=== PATIENT | male | born 1940 | race Caucasian/White ===

== ENCOUNTER → 2016-07-03 | Outpatient (CLI) | payer BC ==
--- NOTE | 2016-07-03 13:10 | DIAGNOSTIC IMAGING REPORT ---
CHEST 2 VIEWS ROUTINE CLINICAL HISTORY: Cough COMPARISON STUDY: No previous studies for comparison. FINDINGS: The heart is normal in size. There is aortic tortuosity. There is no focal pulmonary consolidation. There is no failure. There are no pleural effusions.[ IMPRESSION: No active disease in the chest. Electronically signed by: Scooter Nino M.D. 07/03/2016 1:09 PM Dictated Date/Time: 07/03/2016 1:09 PM
== END | disposition home or self-care (01) ==
LOC: C.RAD1850 12:55
PROVIDERS: ATTEND Internal Medicine
DX: R05 Cough (principal)

== ENCOUNTER 2018-05-11 21:39 | Inpatient (IN) ==
[2018-05-11] MEDS ORDERED: ACETAMINOPHEN 500 MG TAB PO STA (21:55)
[2018-05-11] MEDS ORDERED: ALBUTEROL 0.083% NEBU SOLN 3 ML VIAL NEB STA ×3 (21:55→22:50)
[2018-05-11] MEDS ORDERED: SODIUM CHLORIDE 0.9% 1000ML 1,000 ML IV SCH (22:00)
[2018-05-11 22:27] LABS: Basophils # (auto) 0.01 K/uL (0-0.2); Basophils % (auto) 0.1 %; Eosinophils # (auto) 0.02 K/uL (0-0.5); Eosinophils % (auto) 0.2 %; Hematocrit (blood only) 40.7 % (42-52); Hemoglobin 13.4 g/dL (14.0-18.0); Immature Granulocytes # (auto) 0.04 K/uL (0.00-0.02); Immature Granulocytes % (auto) 0.5 %; Lymphocytes % (auto) 7.1 %; Mean Corpuscular Hgb Conc 32.9 g/dL (32-36); Mean Corpuscular Volume 95.5 fL (80-100); Mean Platelet Volume 9.8 fL (7.4-10.4); Monocytes # (auto) 0.57 K/uL (0.11-0.59); Monocytes % (auto) 6.7 %; Neutrophils # (auto) 7.23 K/uL (1.4-6.5); Neutrophils % (auto) 85.4 %; Platelet Count 183 K/uL (130-400); RDW Coefficient of Variation 13.7 % (11.5-14.5); RDW Standard Deviation 47.2 fL (36.4-46.3); Red Blood Count 4.26 M/uL (4.7-6.1); White Blood Count 8.47 K/uL (4.8-10.8)
--- NOTE | 2018-05-11 22:39 | XRay Report ---
XR chest 1V portable CLINICAL HISTORY: SHORT OF BREATH COMPARISON STUDY: 07/03/2016 FINDINGS: The heart is mildly enlarged. There is no overt failure. There is no lobar consolidation. T here are no pleural effusions. There is subsegmental atelectatic changes at the left lung base.[ IMPRESSION: 1. Mild cardiomegaly 2. Left basilar subsegmental atelectasis Electronically signed by: Scooter Nino M.D. 05/11/2018 10:38 PM
[2018-05-11 22:43] LABS: Appearance Urine Clear (Clear); Bacteria Urine Automated Negative (Negative); Bilirubin Urine Negative (Negative); Color Urine Dark Yellow; Epithelial Cell Urine Auto 20-30 /lpf (0-5); Glucose Urine UA Negative (Negative); Ketones Urine Trace (Negative); Leukocyte Esterase Urine Negative (Negative); Nitrite Urine Negative (Negative); Protein Urine 1+ (Negative); Specific Gravity Urine 1.026 (1.000-1.030); Urobilinogen Urine Negative (Negative)
[2018-05-11 22:44] LABS: Albumin Level 3.5 gm/dl (3.4-5.0); BUN Creatinine Ratio 11.3 (10-20); Calcium 8.4 mg/dl (8.5-10.1); Creatinine Clr Calc Pharmacy 64.4 ml/min; Magnesium 2.1 mg/dl (1.8-2.4); Potassium 3.5 mmol/L (3.5-5.1)
[2018-05-11] MEDS ORDERED: DOXYCYCLINE HYCLATE 100 MG CAP PO STA (22:50)
[2018-05-11] MEDS ORDERED: ALBUTEROL HFA 8 GM INHALER INH ONE (22:50)
[2018-05-11 22:56] LABS: Albumin Globulin Ratio 0.9 (0.9-2); Bilirubin,Total 0.9 mg/dl (0.2-1); Globulin 3.9 gm/dl (2.5-4.0); Total Protein 7.4 gm/dl (6.4-8.2); Troponin I 0.049 ng/ml (0-0.045)
[2018-05-11] MEDS ORDERED: cefTRIAXone SODIUM 2,000 MG in DEXTROSE 5% 50 ML IV STA (22:56)
[2018-05-12 00:30] LABS: Influenza A virus by PCR Neg for Influ A (Neg); Influenza B virus by PCR Neg for Influ B (Neg)
--- NOTE | 2018-05-12 01:40 | History & Physical Report ---
Date of Service May 12, 2018 Assessment & Plan (1) Fever: Carroll Perera is a 77 y.o male with history of HTN and aortic aneurysm found to have recent tick bite admitted for further evaluation of fever, non- productive cough and fatigue. 1. Acute Febrile State - May be secondary to lyme disease vs ehrlichiosis vs anaplasmosis vs babesiosis vs viral illness -Most recent fever of 38.0 -WBC wnl, neutrophils mildly elevated -Blood culture pending -Influenza A/B negative -Anaplasmosis and Ehrlichiosis labs pending -Given Ceftriaxone 2gm for coverage of possible neuro involvement -Will continue Ceftriaxone 2gm q24hr and day team may consider discontinuing as appropriate -Continue Doxy 100mg PO BID x 10 day, received one dose in ED -Will continue IVF NS at rate of 125cc/hr -Tylenol as needed for fever 2. Acute Non-productive cough -May be secondary to viral illness vs tic borne disease - CXR negative for consolidation/effusion - Was given Albuterol neb x 3 in ED -Continue albuterol neb as needed for cough/wheeze -O2 at 3L to maintain sats > 92% -Tessalon pearls as needed 3. Syncope -Near syncopal state -Likely secondary to excessive non-productive cough -EKG: T-wave inversion in inferior leads, ST depression in anterior leads, no acute ST elevation -Troponin of 0.049, likely secondary to acute illness, will continue to trend -On Tele monitoring -Will continue IVF until taking PO well 4. HTN -Continue home dose of Amlodipine 5. History of Aortic Aneursym -Being monitored in outpt setting 6. ASCVD risk -Continue Aspirin 81mg PO daily FEN/GI IVF: NS at 125cc/hr Monitor and replace electrolytes Diet: Heart healthy Activity: up as tolerated GI PPX: Protonix DVT PPX: Heparin Code: FUll Code Dispo: Admitted to inpt for management of febrile illness. Plan to discharge to home when stable. Present on Admission?: Yes (2) Non-productive cough: Present on Admission?: Yes (3) Fatigue: Present on Admission?: Yes History of Present Illness Chief Complaint: coughing and could not catch my breath Primary Care Provider: Niraj Cleary MD Carroll Perera is a 77 y.o male with history of HTN and aortic aneurysm complaining of non-productive cough x 1 day with worsening frequency and pain on left side of chest with cough. States that cough started on 05/10/18 with associated congestion. He was able to sleep overnight but reports increasing fatigue on 04/17. He did not take any medication for the cough. Presented to the ED because he could not catch his breath while coughing and was beginning to feel short of breath. Additional information of tic bite found on right flank on . Reports itching at site which is how he identified the tic. The tic was removed on 05/04/18 by a friend. Mr. Perera believes that the tic was on his back for 2 days prior to removal. Was seen in clinic per Dr. Cleary and lymes serology obtained with negative result. He is tolerating fluids well. Febrile today with sweats. Denies n/v/diarrhea. Denies sick contacts. ED Course: Ceftriaxone 2gm given, Doxycycline 100mg given, Albuterol neb treatment x 3, IVF 1L bolus Allergies Allergy/AdvReac Type Severity Reaction Status Date / Time No Known Allergies Allergy Unknown Verified 05/11/18 22:50 Home Medications Home Medications Medication Instructions Recorded Confirmed Type Cinnamon 250 mg PO DAILY 05/11/18 05/11/18 History Red Rice Yeast 100 mg PO DAILY 05/11/18 05/11/18 History amlodipine 10 mg PO DAILY 05/11/18 05/11/18 History aspirin [Aspir-81] 81 mg PO DAILY 05/11/18 05/11/18 History ferrous sulfate [iron] 325 mg PO DAILY 05/11/18 05/11/18 History mv,Ca,aie-uqwm-LU-lycopene 1 tab PO DAILY 05/11/18 05/11/18 History [Centrum Men] doxycycline hyclate 100 mg PO BID #14 cap 05/12/18 Rx Past Med/Surg History Medical History No pertinent past medical history Social History Current Living Situation: Spouse Current Living Situation Comment: Lives in [place] with Other Information That Helps Us Care for You: No Feels Safe at Home: Yes Smoking Status: Never smoker Hx Alcohol Use: No Hx Substance Use: No Beliefs That Will Affect Care: None Preferred Language: Bulgarian Review of Systems Constitutional: + fever and + fatigue Eyes: no worsening vision Ear, Nose, Mouth, Throat: + nasal congestion Respiratory: + cough, + dyspnea on exertion, + pain with cough and + wheezing; no hemoptysis and no sputum production Cardiovascular: no chest pain, no palpitations, no lightheadedness and no edema Gastrointestinal: no heartburn, no cramping and no constipation Genitourinary (Male): no dysuria and no hematuria Musculoskeletal: no neck pain, no joint pain, no stiffness and no body aches Integumentary: + lesions Neurologic: no loss of sensation, no numbness and no paresthesia Hematologic / Lymphatic: no easy bleeding and no easy bruising Physical Exam 2 Vital Signs (Past 24 Hours): Last Vital Signs Temp 38.0 C H 05/11/18 23:28 Pulse 85 05/12/18 00:41 Resp 18 05/12/18 00:41 BP 125/55 L 05/12/18 00:41 Pulse Ox 92 05/12/18 00:41 Constitutional: well developed, + ill appearing, + obese and cooperative; no acute distress Eyes: PERRL, conjunctivae normal, anicteric sclerae ENMT: Nose: + turbinate abnormality (inflamed turbinates); no sinus tenderness moist mucus membranes Neck: neck supple, negative lymphadenopathy Respiratory: normal respiratory effort and + audible wheezes; no labored breathing, no nasal flaring and no pursed lip breathing Auscultation: no diminished lung sounds, no rales and no rhonchi Expiratory wheezes heard throughout all lung [place] with bases > upper lobes Cardiovascular: RRR, no murmur, no edema Heart Sounds: normal S1 and normal S2 Gastrointestinal (Abdomen): Percussion/Palpation: abdomen soft distended, bowel sounds present Musculoskeletal: no cyanosis or clubbing, extremities motor strength 5/5 moving all extremities well Skin: right flank with 1mm sized annular eschar, with mild erythema of surrounding tissue skin is warm and moist Neurologic: PERRL, EOMI, accommodation nl, no face palsy, no dysarthria CN' s II-XI intact bilaterally Lymphatic: negative cervical adenopathy Results & Data Laboratory Results Troponin 0.049 Diagnostic Findings CXR negative Code Status & VTE Plan Code Status DNR VTE Prophylaxis Plan VTE Prophylaxis will be ordered: Yes Supervising Physician Co-Signing Physician Notes Attending addendum: I have physically seen this patient, have supervised the medical residents activities, and agree with the H&P unless as otherwise noted. Assessment and Plan: Acute febrile illness-- Patient did have a tick removed at his PCPs office a few days ago. Would therefore warrant further workup for Lyme disease, ehrlichiosis, anaplasmosis, and empiric treatment with ceftriaxone IV and doxycycline p.o. NSS at 125 mL's per hour. Follow all culture results. Consult infectious disease. Elevated troponin/NSTEMI likely associated with supply demand mismatch-- The patient will be admitted to telemetry for serial cardiac enzymes, serial EKG's, cardiac rhythm monitoring and a 2-D echocardiogram with Dopplers. Continue amlodipine with hold parameters. Consult cardiology Remaining orders and notations as noted _ (1) Fever Encounter type: Fever type: unspecified Qualified Code(s): R50.9 - Fever, unspecified
[2018-05-12] MEDS ORDERED: ONDANSETRON INJ 2 MG/ML 2 ML VIAL IV PRN (01:44)
[2018-05-12] MEDS ORDERED: NITROGLYCERIN SL 0.4 MG/TAB TAB SL PRN (01:44)
[2018-05-12] MEDS ORDERED: ACETAMINOPHEN 325 MG TAB PO PRN (01:44)
[2018-05-12] MEDS ORDERED: SODIUM CHLORIDE 0.9% 1000ML 1,000 ML IV SCH (01:44)
[2018-05-12] MEDS ORDERED: ALUMINUM/MAGNESIUM SUSP 30 ML UDC PO PRN (01:44)
[2018-05-12] MEDS ORDERED: POLYETHYLENE (MIRALAX) 17 GM PACK PO PRN (01:44)
[2018-05-12] MEDS ORDERED: BENZONATATE 100 MG CAPSULE PO PRN (05:10)
[2018-05-12] MEDS ORDERED: ALBUTEROL 0.083% NEBU SOLN 3 ML VIAL NEB PRN (05:10)
[2018-05-12 06:49] LABS: INR 1.1 (0.9-1.1); Prothrombin Time 10.7 Seconds (9.0-12.0)
[2018-05-12 07:35] LABS: Basophils # (auto) 0.01 K/uL (0-0.2); Basophils % (auto) 0.2 %; Eosinophils # (auto) 0.01 K/uL (0-0.5); Eosinophils % (auto) 0.2 %; Hematocrit (blood only) 38.4 % (42-52); Hemoglobin 12.5 g/dL (14.0-18.0); Immature Granulocytes # (auto) 0.03 K/uL (0.00-0.02); Immature Granulocytes % (auto) 0.5 %; Lymphocytes # (auto) 0.93 K/uL (1.2-3.4); Lymphocytes % (auto) 15.3 %; Mean Corpuscular Volume 96.5 fL (80-100); Monocytes % (auto) 9.9 %; Neutrophils # (auto) 4.48 K/uL (1.4-6.5); Neutrophils % (auto) 73.9 %; Platelet Count 151 K/uL (130-400); RDW Coefficient of Variation 13.7 % (11.5-14.5); RDW Standard Deviation 48.7 fL (36.4-46.3); Red Blood Count 3.98 M/uL (4.7-6.1); White Blood Count 6.06 K/uL (4.8-10.8)
[2018-05-12 07:39] LABS: BUN Creatinine Ratio 12.5 (10-20); Creatinine Clr Calc Pharmacy 72.8 ml/min; Est GFR (African American) 85.8; Est GFR (Non-African American) 74.1; Potassium 3.6 mmol/L (3.5-5.1)
[2018-05-12 07:42] LABS: Mean Corpuscular Hgb Conc 32.6 g/dL (32-36)
[2018-05-12] MEDS: HEPARIN SOD 5,000 UNIT/0.5 ML VIAL SQ SCH ×2 (07:47→10:15)
[2018-05-12] MEDS ORDERED: AMLODIPINE BESYLATE 5 MG TAB PO SCH (09:00)
[2018-05-12] MEDS ORDERED: DOXYCYCLINE HYCLATE 100 MG CAP PO SCH (09:00)
[2018-05-12] MEDS ORDERED: ASPIRIN 81 MG ECTAB PO SCH (09:00)
[2018-05-12] MEDS ORDERED: PANTOprazole 40 MG TAB PO SCH (09:00)
--- NOTE | 2018-05-12 17:24 | Discharge Summary ---
Date of Service May 12, 2018 Admission HPI Per Admitting Provider Carroll Perera is a 77 y.o male with history of HTN and aortic aneurysm complaining of non-productive cough x 1 day with worsening frequency and pain on left side of chest with cough. States that cough started on 05/10/18 with associated congestion. He was able to sleep overnight but reports increasing fatigue on 04/17. He did not take any medication for the cough. Presented to the ED because he could not catch his breath while coughing and was beginning to feel short of breath. Additional information of tic bite found on right flank on . Reports itching at site which is how he identified the tic. The tic was removed on 05/04/18 by a friend. Mr. Perera believes that the tic was on his back for 2 days prior to removal. Was seen in clinic per Dr. Cleary and lymes serology obtained with negative result. He is tolerating fluids well. Febrile today with sweats. Denies n/v/diarrhea. Denies sick contacts. ED Course: Ceftriaxone 2gm given, Doxycycline 100mg given, Albuterol neb treatment x 3, IVF 1L bolus Principal Diagnosis Upper respiratory infection vs. tick-borne disease Discharge Exam Constitutional well developed, + ill appearing, + obese and cooperative; no acute distress Eyes PERRL, conjunctivae normal, anicteric sclerae ENMT Nose: + turbinate abnormality (inflamed turbinates); no sinus tenderness Respiratory normal respiratory effort and + audible wheezes; no labored breathing, no nasal flaring and no pursed lip breathing Auscultation: no diminished lung sounds, no rales and no rhonchi Cardiovascular RRR, no murmur, no edema Heart Sounds: normal S1 and normal S2 Gastrointestinal (Abdomen) Percussion/Palpation: abdomen soft Musculoskeletal no cyanosis or clubbing, extremities motor strength 5/5 Neurologic PERRL, EOMI, accommodation nl, no face palsy, no dysarthria CN's II-XI intact bilaterally Discharge Data Allergies Allergy/AdvReac Type Severity Reaction Status Date / Time No Known Allergies Allergy Unknown Verified 05/11/18 22:50 Consultations 05/11/18 23:02 ED Decision to Admit Stat Hospital Course (1) Fever: Carrlol Perera is a 77 y.o male with history of HTN and aortic aneurysm found to have recent tick bite admitted for further evaluation of fever, non- productive cough and fatigue. 1. Acute Febrile State - May be secondary to lyme disease vs ehrlichiosis vs anaplasmosis vs babesiosis vs viral illness -Influenza A/B negative -Anaplasmosis and Ehrlichiosis labs pending -Given Ceftriaxone 2gm for coverage of possible neuro involvement Day after admission, he was afebrile, felt fine, and requested discharge. He will take doxycycline for 1 week for any bronchitis, and follow up with his PCP to determine if he has any tick-borne disease that would require further treatment. (2) Non-productive cough: (3) Fatigue: Total Time Total Time Spent Total Time Spent (In Minutes): 35 Total Time Includes: Examination of the Patient, Discharge Planning and Medication Reconciliation Discharge Plan Discharge Items Patient Disposition: Home - Self-Care Reason For Visit: FEVER,COUGH,NEAR SYNCOPE Discharge Diagnosis: Viral illness or possible tick-borne disease Discharge Goals: Decrease discomfort Activity: Resume your previous activity Non-emergency contact: Primary Care Provider Call non-emergency contact if: your symptoms worsen and your temperature is above 101.5 Follow-up/Referrals: Francois Cleary MD [Primary Care Provider] - (Please see Dr. Cleary in a week to make sure you are feeling better.) Diet: Regular Addtl Provider Instructions: Mr. Perera, You were admitted to the hospital for fever, cough, and some feelings of lightheadedness. We did some testing, and think you probably have/had a viral infection causing bronchitis. We gave you some antibiotics, and by the day of discharge, you were feeling better. You still have some cough, which may last for another week or so. You also had a tick bite recently. You said that you think the tick was on for less than 24 hours and that it was not engorged. Both of these things make it less likely that you got any tick-borne disease like Lyme's. However, you said you have a course of doxycycline at home, and I think you should take this for the next week to be sure and to also treat the mostly causes of bronchitis. Finally, we tested a lab called the troponin which was mildly elevated. Your EKG showed some changes, but you did not have chest pain while you were here. It may be worthwhile to follow up with your PCP about any additional heart testing. Please see your PCP in the next week or so to be sure you're feeling better and to follow up on some of the labs that we pricila in the hospital that are not back yet. Please return to the hospital with any chest pain, fever, cough, chills, or other concerning symptoms. Prescriptions: New doxycycline hyclate 100 mg Capsule 100 mg PO BID Qty: 14 RF: 0 Continue amlodipine 10 mg Tablet 10 mg PO DAILY RF: 0 Cinnamon 250 mg PO DAILY RF: 0 Red Rice Yeast 100 mg PO DAILY RF: 0 mv,Ca,zaa-utqf-FH-lycopene [Centrum Men] 8 mg iron- 200 mcg-600 mcg Tablet 1 tab PO DAILY RF: 0 ferrous sulfate [iron] 325 mg (65 mg iron) Tablet 325 mg PO DAILY RF: 0 aspirin [Aspir-81] 81 mg Tablet,Delayed Release (Dr/Ec) 81 mg PO DAILY RF: 0 Visit Report Forms: [facility] Stand-Alone Forms: [facility] Discharge Orders: Discharge Order (Routine); Ordered 05/12/18 Ordered By: Apolinar Kincaid Admission Data Admit Date/Time: 05/12/18 01:21 Attending Provider: Apolinar Kincaid Admit Provider: Rick Miller Primary Care Provider: Francois Cleary Other Providers: Apolinar Kincaid Service: Telemetry Other Interventions: Discharge Summary Assessment (RN) Last Done: 05/12/18 11:11 DC Date/Time DO NOT enter until pt leaves facility: 05/12/18 12:40
--- NOTE | 2018-05-12 19:24 | Emergency Department Note ---
Entered by Beto Ortega acting as a scribe for Jeremi Aguilar MD History of Present Illness General Chief complaint: Syncope (Near Syncope) Stated complaint: CHEST CONGESTION, COUGH, PASSED OUT ONCE Time Seen by Provider: 05/11/18 21:50 Source: patient History of Present Illness Provider complaint: Respiratory issues Onset (ago): minute(s) (Just prior to arrival) Location: chest Pain Consistency: + intermittent Maximum Pain Intensity: 6 Relieved By: + none Exacerbated By: + none Associated symptoms: + cough and + fever/chills; no shortness of breath The patient is a 77 year old male who presents to the Emergency Room with complaints of intermittent respiratory issues that started today just prior to arrival. He states he had a coughing fit that almost made him syncopize and he does have a fever, however he currently denies any shortness of breath. The patient does not have any history of respiratory issues and does not wear oxygen at baseline. Prior to arrival he did take 2 Azithromycin that his gave him from her [employer]. He also mentioned that he had a tick bite last week but he had it removed and was tested for Lymes Disease. Home Medications Home Medications Medication Instructions Recorded Confirmed Type Cinnamon 250 mg PO DAILY 05/11/18 05/11/18 History Red Rice Yeast 100 mg PO DAILY 05/11/18 05/11/18 History amlodipine 10 mg PO DAILY 05/11/18 05/11/18 History aspirin [Aspir-81] 81 mg PO DAILY 05/11/18 05/11/18 History ferrous sulfate [iron] 325 mg PO DAILY 05/11/18 05/11/18 History mv,Ca,ihn-qxmu-VH-lycopene 1 tab PO DAILY 05/11/18 05/11/18 History [Centrum Men] doxycycline hyclate 100 mg PO BID #14 cap 05/12/18 Rx Allergies Allergy/AdvReac Type Severity Reaction Status Date / Time No Known Allergies Allergy Unknown Verified 05/11/18 22:50 Past Med/Surg History Medical History No pertinent past medical history Social History Current Living Situation: Spouse Current Living Situation Comment: Lives in [place] with Other Information That Helps Us Care for You: No Feels Safe at Home: Yes Smoking Status: Never smoker Hx Alcohol Use: No Hx Substance Use: No Beliefs That Will Affect Care: None Preferred Language: Yi Review of Systems See HPI for pertinent positives & negatives. and A total of 10 systems reviewed and were otherwise negative Physical Exam Vital Signs Vital Signs - 24 hr 05/11/18 21:44 05/11/18 22:14 05/11/18 22:35 Temperature 38.8 C H Temperature Source Oral Sepsis Recent Fever Within 48 Hours Yes Sepsis New/Unexplained Change in Mental Status No Sepsis Action Taken by Nursing No Action Required Pulse Rate 105 H Pulse Rate [Right] 100 H Pulse Rhythm Regular Pulse Rhythm [Right] Regular Pulse Strength Normal Pulse Strength [Right] Normal Respiratory Rate 20 20 Respiratory Effort / Characteristics Non-Labored Spontaneous Non-Labored Spontaneous Respiratory Depth Normal Normal Respiratory Pattern Regular Blood Pressure 144/81 H Blood Pressure [Left Arm] Blood Pressure [Right Arm] 135/76 Blood Pressure Mean 102 Blood Pressure Mean [Left Arm] Blood Pressure Mean [Right Arm] 95 Blood Pressure Position Sitting Blood Pressure Position [Left Arm] Blood Pressure Position [Right Arm] Sitting Pulse Oximetry 87 L 97 98 Oxygen Delivery Method Room Air Room Air Room Air Oxygen Flow Rate 05/11/18 23:28 05/12/18 00:41 05/12/18 01:32 Temperature 38.0 C H Temperature Source Oral Sepsis Recent Fever Within 48 Hours Sepsis New/Unexplained Change in Mental Status Sepsis Action Taken by Nursing Pulse Rate Pulse Rate [Right] 85 80 Pulse Rhythm Pulse Rhythm [Right] Regular Regular Pulse Strength Pulse Strength [Right] Normal Respiratory Rate 18 20 Respiratory Effort / Characteristics Non-Labored Spontaneous Non-Labored Spontaneous Respiratory Depth Normal Normal Respiratory Pattern Blood Pressure Blood Pressure [Left Arm] Blood Pressure [Right Arm] 125/55 L 122/56 L Blood Pressure Mean Blood Pressure Mean [Left Arm] Blood Pressure Mean [Right Arm] 78 78 Blood Pressure Position Blood Pressure Position [Left Arm] Blood Pressure Position [Right Arm] Lying Pulse Oximetry 92 93 Oxygen Delivery Method Nasal Cannula Nasal Cannula Oxygen Flow Rate 3 2 05/12/18 01:44 05/12/18 01:45 05/12/18 03:38 Temperature 36.8 C 36.8 C Temperature Source Axillary Oral Sepsis Recent Fever Within 48 Hours Sepsis New/Unexplained Change in Mental Status Sepsis Action Taken by Nursing Pulse Rate Pulse Rate [Right] 82 74 Pulse Rhythm Pulse Rhythm [Right] Regular Pulse Strength Pulse Strength [Right] Normal Respiratory Rate 18 23 Respiratory Effort / Characteristics SOB on Exertion Non-Labored Respiratory Depth Normal Normal Respiratory Pattern Regular Regular Blood Pressure Blood Pressure [Left Arm] 127/67 Blood Pressure [Right Arm] 112/61 Blood Pressure Mean Blood Pressure Mean [Left Arm] 87 Blood Pressure Mean [Right Arm] 78 Blood Pressure Position Blood Pressure Position [Left Arm] Lying Blood Pressure Position [Right Arm] Lying Pulse Oximetry 91 93 Oxygen Delivery Method Nasal Cannula Room Air Nasal Cannula Oxygen Flow Rate 2 2 05/12/18 07:47 05/12/18 08:00 05/12/18 10:45 Temperature 37.5 C 36.9 C Temperature Source Oral Oral Sepsis Recent Fever Within 48 Hours Sepsis New/Unexplained Change in Mental Status Sepsis Action Taken by Nursing Pulse Rate Pulse Rate [Right] 79 80 Pulse Rhythm Pulse Rhythm [Right] Pulse Strength Pulse Strength [Right] Respiratory Rate 20 19 Respiratory Effort / Characteristics SOB on Exertion Respiratory Depth Respiratory Pattern Blood Pressure Blood Pressure [Left Arm] Blood Pressure [Right Arm] 158/59 H 154/81 H Blood Pressure Mean Blood Pressure Mean [Left Arm] Blood Pressure Mean [Right Arm] 92 105 Blood Pressure Position Blood Pressure Position [Left Arm] Blood Pressure Position [Right Arm] Sitting Sitting Pulse Oximetry 92 91 Oxygen Delivery Method Nasal Cannula Nasal Cannula Room Air Oxygen Flow Rate 3 3 05/12/18 11:11 Temperature 36.9 C Temperature Source Sepsis Recent Fever Within 48 Hours Sepsis New/Unexplained Change in Mental Status Sepsis Action Taken by Nursing Pulse Rate Pulse Rate [Right] 80 Pulse Rhythm Pulse Rhythm [Right] Pulse Strength Pulse Strength [Right] Respiratory Rate 19 Respiratory Effort / Characteristics Respiratory Depth Respiratory Pattern Blood Pressure Blood Pressure [Left Arm] 127/67 Blood Pressure [Right Arm] 154/81 H Blood Pressure Mean Blood Pressure Mean [Left Arm] Blood Pressure Mean [Right Arm] Blood Pressure Position Blood Pressure Position [Left Arm] Blood Pressure Position [Right Arm] Pulse Oximetry 91 Oxygen Delivery Method Oxygen Flow Rate GENERAL: Awake, alert, well-appearing, in no distress HENT: Normocephalic, atraumatic. Oropharynx unremarkable. EYES: Normal conjunctiva. Sclera non-icteric. NECK: Supple. No nuchal rigidity. FROM. No masses. RESPIRATORY: Bilateral wheezing. No rales. Normal respiratory effort. CARDIAC: Normal rate. Normal rhythm. No murmurs. No rubs. Extremities warm and well perfused. Pulses equal. No JVD. GI: Soft, non-distended. No tenderness to palpation. No rebound or guarding. No masses. RECTAL: Deferred. MUSCULOSKELETAL: Atraumatic. Chest examination reveals no tenderness. The back is symmetrical on inspection without obvious abnormality. There is no CVA tenderness to palpation. No joint edema. LOWER EXTREMITIES: Calves are equal size bilaterally and non-tender. No edema. No discoloration. NEURO: Normal sensorium. No sensory or motor deficits noted. Course 2151: Past medical records reviewed. The patient was evaluated in room C12, and a complete history and physical examination were performed. 8: I reevaluated the patient and updated him on his labs. We also discussed the treatment plan. 2310: I spoke to [facility] Ty [facility] Hospital[facility] about the patient's case and he is going to accept him for further evaluation. Consultations Consultation #1: [facility] and [facility] is going to accept him for further evaluation. Time: 23:10 Administered Medications Discontinued Medications Acetaminophen (Tylenol) 1,000 mg PO NOW STA Stop: 05/11/18 21:56 Last Admin: 05/11/18 22:06 Dose: 1,000 mg Albuterol (Ventolin 0.083% 2.5mg/3ml) 2.5 mg NEB NOW STA Stop: 05/11/18 21:56 Last Admin: 05/11/18 22:06 Dose: 2.5 mg Albuterol (Ventolin 0.083% 2.5mg/3ml) 2.5 mg NEB NOW STA Stop: 05/11/18 22:27 Last Admin: 05/11/18 22:34 Dose: 2.5 mg Albuterol (Ventolin 0.083% 2.5mg/3ml) 2.5 mg NEB NOW STA Stop: 05/11/18 22:51 Last Admin: 05/11/18 23:04 Dose: 2.5 mg Albuterol (Ventolin Hfa) 2 puffs INH NOW ONE Stop: 05/11/18 22:51 Last Admin: 05/11/18 23:03 Dose: Not Given Amlodipine Besylate (Norvasc) 10 mg PO DAILY DENNIS Stop: 06/11/18 08:59 Last Admin: 05/12/18 07:47 Dose: 10 mg Aspirin (Ecotrin Ectab) 81 mg PO DAILY DENNIS Stop: 06/11/18 08:59 Last Admin: 05/12/18 07:48 Dose: 81 mg Doxycycline Hyclate (Vibramycin) 100 mg PO NOW STA Stop: 05/11/18 22:51 Last Admin: 05/11/18 23:04 Dose: 100 mg Doxycycline Hyclate (Vibramycin) 100 mg PO BID DENNIS Stop: 05/26/18 08:59 Last Admin: 05/12/18 07:48 Dose: 100 mg Heparin Sodium (Porcine) (Heparin Sodium (Porcine)) 5,000 units SQ Q8H DENNIS Stop: 06/11/18 07:59 Last Admin: 05/12/18 10:15 Dose: Not Given Admin: 05/12/18 07:47 Dose: Not Given Sodium Chloride (Nss 1000ml) 1,000 mls @ 999 mls/hr IV .Q1H1M DENNIS Stop: 05/11/18 23:00 Last Infusion: 05/11/18 23:08 Dose: 0 mls/hr Admin: 05/11/18 22:06 Dose: 999 mls/hr Ceftriaxone Sodium 2,000 mg/ (Dextrose) 70 mls @ 100 mls/hr IV NOW STA; Protocol Stop: 05/11/18 23:37 Last Infusion: 05/11/18 23:48 Dose: 0 mls/hr Admin: 05/11/18 23:06 Dose: 100 mls/hr Sodium Chloride (Nss 1000ml) 1,000 mls @ 125 mls/hr IV .Q8H DENNIS Stop: 06/11/18 01:43 Last Infusion: 05/12/18 08:43 Dose: 0 mls/hr Admin: 05/12/18 02:08 Dose: 125 mls/hr Pantoprazole Sodium (Protonix) 40 mg PO QAM DENNIS Stop: 06/11/18 08:59 Last Admin: 05/12/18 07:49 Dose: Not Given Medical Decision Making Differential Diagnosis Differential diagnoses includes but is not limited to pneumonia, bronchitis, COPD/Asthma exacerbation, pneumothorax, pulmonary embolism, congestive heart failure, acute coronary syndrome Medical Records Attestation: I reviewed the patient's medical records. Home Medications Current Medication List: was personally reviewed by me Laboratory Data Attestation: I reviewed the patient's lab results. Result diagrams: 05/12/18 06:10 05/12/18 06:10 Lab Results 05/11/18 05/11/18 05/11/18 Range/Units 22:10 22:10 22:13 WBC 8.47 (4.8-10.8) K/uL RBC 4.26 L (4.7-6.1) M/uL Hgb 13.4 L (14.0-18.0) g/dL Hct 40.7 L (42-52) % MCV 95.5 (80-100) fL MCH 31.5 (25-34) pg MCHC 32.9 (32-36) g/dL RDW Std Deviation 47.2 H (36.4-46.3) fL RDW Coeff of Heidy 13.7 (11.5-14.5) % Plt Count 183 (130-400) K/uL MPV 9.8 (7.4-10.4) fL Immature Gran % (Auto) 0.5 % Neut % (Auto) 85.4 % Lymph % (Auto) 7.1 % [place] % (Auto) 6.7 % Eos % (Auto) 0.2 % Baso % (Auto) 0.1 % Immature Gran # (Auto) 0.04 H (0.00-0.02) K/uL Neut # (Auto) 7.23 H (1.4-6.5) K/uL Lymph # (Auto) 0.60 L (1.2-3.4) K/uL [place] # (Auto) 0.57 (0.11-0.59) K/uL Eos # (Auto) 0.02 (0-0.5) K/uL Baso # (Auto) 0.01 (0-0.2) K/uL Absolute Nucleated RBC 0.00 (0-0) K/uL Nucleated RBC % (auto) 0.0 % PT (9.0-12.0) Seconds INR (0.9-1.1) Sodium 139 (136-145) mmol/L Potassium 3.5 (3.5-5.1) mmol/L Chloride 106 (98-107) mmol/L Carbon Dioxide 25 (21-32) mmol/L Anion Gap 8.0 (3-11) BUN 13 (7-18) mg/dl Creatinine 1.12 (0.6-1.4) mg/dl Est Cr Clr Drug Dosing 64.4 ml/min Est GFR ( Amer) 73.0 Est GFR (Non-Af Amer) 63.0 BUN/Creatinine Ratio 11.3 (10-20) Glucose 116 H (70-99) mg/dl POC Lactic Acid Erick (0.90-1.70) mmol/L Calcium 8.4 L (8.5-10.1) mg/dl Magnesium 2.1 (1.8-2.4) mg/dl Total Bilirubin 0.9 (0.2-1) mg/dl AST 35 (15-37) U/L ALT 38 (12-78) U/L Alkaline Phosphatase 52 (45-117) U/L Troponin I 0.049 H* (0-0.045) ng/ml Total Protein 7.4 (6.4-8.2) gm/dl Albumin 3.5 (3.4-5.0) gm/dl Globulin 3.9 (2.5-4.0) gm/dl Albumin/Globulin Ratio 0.9 (0.9-2) TSH 0.805 (0.300-4.500) uIu/ml Urine Color Urine Appearance (Clear) Urine pH (4.5-7.5) Ur Specific [place] (1.000-1.030) Urine Protein (Negative) Urine Glucose (UA) (Negative) Urine Ketones (Negative) Urine Blood (Negative) Urine Nitrite (Negative) Urine Bilirubin (Negative) Urine Urobilinogen (Negative) Ur Leukocyte Esterase (Negative) Urine WBC (Auto) (0-5) /hpf Urine RBC (Auto) (0-4) /hpf U Hyaline Cast (Auto) (0-5) /lpf U Epithel Cells (Auto) (0-5) /lpf Urine Bacteria (Auto) (Negative) Influenza Type A Ag Neg for Influ A (Neg) Influenza Type A (PCR) (Neg) Influenza Type B Ag Neg for Influ B (Neg) Influenza Type B (PCR) (Neg) 05/11/18 05/11/18 05/11/18 Range/Units 22:13 22:20 22:35 WBC (4.8-10.8) K/uL RBC (4.7-6.1) M/uL Hgb (14.0-18.0) g/dL Hct (42-52) % MCV (80-100) fL MCH (25-34) pg MCHC (32-36) g/dL RDW Std Deviation (36.4-46.3) fL RDW Coeff of Heidy (11.5-14.5) % Plt Count (130-400) K/uL MPV (7.4-10.4) fL Immature Gran % (Auto) % Neut % (Auto) % Lymph % (Auto) % [place] % (Auto) % Eos % (Auto) % Baso % (Auto) % Immature Gran # (Auto) (0.00-0.02) K/uL Neut # (Auto) (1.4-6.5) K/uL Lymph # (Auto) (1.2-3.4) K/uL [place] # (Auto) (0.11-0.59) K/uL Eos # (Auto) (0-0.5) K/uL Baso # (Auto) (0-0.2) K/uL Absolute Nucleated RBC (0-0) K/uL Nucleated RBC % (auto) % PT (9.0-12.0) Seconds INR (0.9-1.1) Sodium (136-145) mmol/L Potassium (3.5-5.1) mmol/L Chloride (98-107) mmol/L Carbon Dioxide (21-32) mmol/L Anion Gap (3-11) BUN (7-18) mg/dl Creatinine (0.6-1.4) mg/dl Est Cr Clr Drug Dosing ml/min Est GFR ( Amer) Est GFR (Non-Af Amer) BUN/Creatinine Ratio (10-20) Glucose (70-99) mg/dl POC Lactic Acid Erick 1.57 (0.90-1.70) mmol/L Calcium (8.5-10.1) mg/dl Magnesium (1.8-2.4) mg/dl Total Bilirubin (0.2-1) mg/dl AST (15-37) U/L ALT (12-78) U/L Alkaline Phosphatase (45-117) U/L Troponin I (0-0.045) ng/ml Total Protein (6.4-8.2) gm/dl Albumin (3.4-5.0) gm/dl Globulin (2.5-4.0) gm/dl Albumin/Globulin Ratio (0.9-2) TSH (0.300-4.500) uIu/ml Urine Color Dark Yellow Urine Appearance Clear (Clear) Urine pH 5.0 (4.5-7.5) Ur Specific [place] 1.026 (1.000-1.030) Urine Protein 1+ H (Negative) Urine Glucose (UA) Negative (Negative) Urine Ketones Trace H (Negative) Urine Blood Negative (Negative) Urine Nitrite Negative (Negative) Urine Bilirubin Negative (Negative) Urine Urobilinogen Negative (Negative) Ur Leukocyte Esterase Negative (Negative) Urine WBC (Auto) 1-5 (0-5) /hpf Urine RBC (Auto) 0-4 (0-4) /hpf U Hyaline Cast (Auto) 1-5 (0-5) /lpf U Epithel Cells (Auto) 20-30 H (0-5) /lpf Urine Bacteria (Auto) Negative (Negative) Influenza Type A Ag (Neg) Influenza Type A (PCR) Neg for Influ A (Neg) Influenza Type B Ag (Neg) Influenza Type B (PCR) Neg for Influ B (Neg) 05/12/18 05/12/18 05/12/18 Range/Units 06:10 06:10 06:10 WBC 6.06 (4.8-10.8) K/uL RBC 3.98 L (4.7-6.1) M/uL Hgb 12.5 L (14.0-18.0) g/dL Hct 38.4 L (42-52) % MCV 96.5 (80-100) fL MCH 31.4 (25-34) pg MCHC 32.6 (32-36) g/dL RDW Std Deviation 48.7 H (36.4-46.3) fL RDW Coeff of Heidy 13.7 (11.5-14.5) % Plt Count 151 (130-400) K/uL MPV 10.0 (7.4-10.4) fL Immature Gran % (Auto) 0.5 % Neut % (Auto) 73.9 % Lymph % (Auto) 15.3 % [place] % (Auto) 9.9 % Eos % (Auto) 0.2 % Baso % (Auto) 0.2 % Immature Gran # (Auto) 0.03 H (0.00-0.02) K/uL Neut # (Auto) 4.48 (1.4-6.5) K/uL Lymph # (Auto) 0.93 L (1.2-3.4) K/uL [place] # (Auto) 0.60 H (0.11-0.59) K/uL Eos # (Auto) 0.01 (0-0.5) K/uL Baso # (Auto) 0.01 (0-0.2) K/uL Absolute Nucleated RBC (0-0) K/uL Nucleated RBC % (auto) % PT 10.7 (9.0-12.0) Seconds INR 1.1 (0.9-1.1) Sodium (136-145) mmol/L Potassium (3.5-5.1) mmol/L Chloride (98-107) mmol/L Carbon Dioxide (21-32) mmol/L Anion Gap (3-11) BUN (7-18) mg/dl Creatinine (0.6-1.4) mg/dl Est Cr Clr Drug Dosing ml/min Est GFR ( Amer) Est GFR (Non-Af Amer) BUN/Creatinine Ratio (10-20) Glucose (70-99) mg/dl POC Lactic Acid Erick (0.90-1.70) mmol/L Calcium (8.5-10.1) mg/dl Magnesium (1.8-2.4) mg/dl Total Bilirubin (0.2-1) mg/dl AST (15-37) U/L ALT (12-78) U/L Alkaline Phosphatase (45-117) U/L Troponin I 0.200 H* (0-0.045) ng/ml Total Protein (6.4-8.2) gm/dl Albumin (3.4-5.0) gm/dl Globulin (2.5-4.0) gm/dl Albumin/Globulin Ratio (0.9-2) TSH (0.300-4.500) uIu/ml Urine Color Urine Appearance (Clear) Urine pH (4.5-7.5) Ur Specific [place] (1.000-1.030) Urine Protein (Negative) Urine Glucose (UA) (Negative) Urine Ketones (Negative) Urine Blood (Negative) Urine Nitrite (Negative) Urine Bilirubin (Negative) Urine Urobilinogen (Negative) Ur Leukocyte Esterase (Negative) Urine WBC (Auto) (0-5) /hpf Urine RBC (Auto) (0-4) /hpf U Hyaline Cast (Auto) (0-5) /lpf U Epithel Cells (Auto) (0-5) /lpf Urine Bacteria (Auto) (Negative) Influenza Type A Ag (Neg) Influenza Type A (PCR) (Neg) Influenza Type B Ag (Neg) Influenza Type B (PCR) (Neg) 05/12/18 Range/Units 06:10 WBC (4.8-10.8) K/uL RBC (4.7-6.1) M/uL Hgb (14.0-18.0) g/dL Hct (42-52) % MCV (80-100) fL MCH (25-34) pg MCHC (32-36) g/dL RDW Std Deviation (36.4-46.3) fL RDW Coeff of Heidy (11.5-14.5) % Plt Count (130-400) K/uL MPV (7.4-10.4) fL Immature Gran % (Auto) % Neut % (Auto) % Lymph % (Auto) % [place] % (Auto) % Eos % (Auto) % Baso % (Auto) % Immature Gran # (Auto) (0.00-0.02) K/uL Neut # (Auto) (1.4-6.5) K/uL Lymph # (Auto) (1.2-3.4) K/uL [place] # (Auto) (0.11-0.59) K/uL Eos # (Auto) (0-0.5) K/uL Baso # (Auto) (0-0.2) K/uL Absolute Nucleated RBC (0-0) K/uL Nucleated RBC % (auto) % PT (9.0-12.0) Seconds INR (0.9-1.1) Sodium 141 (136-145) mmol/L Potassium 3.6 (3.5-5.1) mmol/L Chloride 107 (98-107) mmol/L Carbon Dioxide 25 (21-32) mmol/L Anion Gap 9.0 (3-11) BUN 12 (7-18) mg/dl Creatinine 0.98 (0.6-1.4) mg/dl Est Cr Clr Drug Dosing 72.8 ml/min Est GFR ( Amer) 85.8 Est GFR (Non-Af Amer) 74.1 BUN/Creatinine Ratio 12.5 (10-20) Glucose 114 H (70-99) mg/dl POC Lactic Acid Erick (0.90-1.70) mmol/L Calcium 8.0 L (8.5-10.1) mg/dl Magnesium (1.8-2.4) mg/dl Total Bilirubin (0.2-1) mg/dl AST (15-37) U/L ALT (12-78) U/L Alkaline Phosphatase (45-117) U/L Troponin I (0-0.045) ng/ml Total Protein (6.4-8.2) gm/dl Albumin (3.4-5.0) gm/dl Globulin (2.5-4.0) gm/dl Albumin/Globulin Ratio (0.9-2) TSH (0.300-4.500) uIu/ml Urine Color Urine Appearance (Clear) Urine pH (4.5-7.5) Ur Specific [place] (1.000-1.030) Urine Protein (Negative) Urine Glucose (UA) (Negative) Urine Ketones (Negative) Urine Blood (Negative) Urine Nitrite (Negative) Urine Bilirubin (Negative) Urine Urobilinogen (Negative) Ur Leukocyte Esterase (Negative) Urine WBC (Auto) (0-5) /hpf Urine RBC (Auto) (0-4) /hpf U Hyaline Cast (Auto) (0-5) /lpf U Epithel Cells (Auto) (0-5) /lpf Urine Bacteria (Auto) (Negative) Influenza Type A Ag (Neg) Influenza Type A (PCR) (Neg) Influenza Type B Ag (Neg) Influenza Type B (PCR) (Neg) Imaging Data Radiologist's Impression: Radiology results as stated below per my review and the radiologist's interpretation: XR chest 1V portable CLINICAL HISTORY: SHORT OF BREATH COMPARISON STUDY: 07/03/2016 FINDINGS: The heart is mildly enlarged. There is no overt failure. There is no lobar consolidation. There are no pleural effusions. There is subsegmental atelectatic changes at the left lung base.[ IMPRESSION: 1. Mild cardiomegaly 2. Left basilar subsegmental atelectasis Electronically signed by: Scooter Nino M.D. 05/11/2018 10:38 PM ECG Data Attestation: I personally reviewed and interpreted this ECG as follows: Indication: SOB/dyspnea Rate (beats per minute): 98 Rhythm: normal sinus Findings: + T-wave inversion (Inferior leads); no ST depression and no ST elevation Blood Pressure Blood Pressure Findings: Normal blood pressure Blood Pressure Disposition: further management by hospitalist MDM Narrative This is a 77-year-old male who presents emergency department after recently having a tick removed off his trunk. I will note that the patient is running a fever here. He is complaining of congestion. He was given multiple breathing treatments here in the emergency department. The patient's troponin is also elevated. Due to the tick being removed the patient was started on 2 g of Rocephin as well as oral doxycycline. I did discuss the case with the hospitalist service who agreed to admit the patient. Patient and family were in agreement with the treatment plan. Impression & Plan Fever Discharge Plan Visit Data *Final* Discharge Date/Time: 05/12/18 01:31 Chief Complaint: Syncope (Near Syncope) Stated Complaint: CHEST CONGESTION, COUGH, PASSED OUT ONCE ED Provider: Jeremi Aguilar Discharge Problem: Fever Patient Disposition: Admitted As Inpatient Discharge Instructions Interventions: ED Discharge Assessment Last Done: 05/12/18 01:31 The scribe's documentation has been prepared under my direction and personally reviewed by me in its entirety. I confirm that the note above accurately reflects all work, treatment, procedures, and medical decision making performed by me.
[2018-05-12] MEDS ORDERED: cefTRIAXone SODIUM 2,000 MG in DEXTROSE 5% 50 ML IV SCH (22:00)
--- NOTE | 2018-05-14 11:27 | Coding Query ---
CODING QUERY To promote full compliance with coding requirements relating to patient care, provider participation is requested in all cases of certified coder uncertainty. Please assist us with the question(s) below: Coding Question(s): The H&P documents elevated troponin/NSTEMI likely associated with supply demand mismatch and the Discharge Summary documents mildly elevated troponin with EKG changes and documents it may be worthwhile to follow up with PCP about any additional heart testing. Please clarify below, in your clinical opinion. ( x ) Elevated Troponin was possible NSTEMI due to demand ischemia or ischemic imbalance (Type 2 VT) ( ) Elevated Troponin was possible NSTEMI (type 1) ( ) Elevated Troponin only - the possible NSTEMI was Ruled-Out Physician's Response(s): Thank you Christina Blancas Principal Diagnosis: "�that condition established after study, to be chiefly responsible for occasioning the admission of the patient to the hospital for care." Co-Existing Principal Diagnosis: "�when two or more diagnoses equally meet the criteria for principal diagnosis as determined by the circumstances of admission , diagnostic work up, and/or therapy provided, and the Alphabetic Index, Tabular List, or another coding guideline does not provide sequencing direction , any one of the diagnoses may be sequenced first." "When the physician has documented what appears to be a current diagnosis in the body of the record, but has not included the diagnosis in the final diagnostic statement, the physician should be asked whether the diagnosis should be added." (Source Coding [facility] 2 QTR90. p3-4) ERICK
[2018-05-15 20:21] LABS: Anaplasma phagocytophila IgM <1:20 (<1:20); Ehrlichia chaff IgG Ab <1:64 (<1:64); Ehrlichia chaff IgM Ab <1:20 (<1:20)
== END 2018-05-12 12:40 | disposition home or self-care (01) | DRG 865 ==
LOC: ED 21:39 → 2S 05-12 01:21 → SUATTDRO 05-12 01:21 → 2S 05-12 01:31